=== PATIENT | male | born 1965 | race African-American/Black ===

== ENCOUNTER 2021-11-07 10:30 | Emergency (ER) | payer BC, OTHER ==
[~2021-11-07] VITALS: Ht 188 cm; Wt 74.8 kg
[2021-11-07 10:40] VITALS: BP 115/92
--- NOTE | 2021-11-07 10:50 | NUR ---
URINE SPECIMEN COLLECTED AND SENT TO LAB.
--- NOTE | 2021-11-07 11:00 | NUR ---
pt came in c/o blood in urine for 4 days along with abdominal pain. pt is a/o x4 and connected to the monitor.
[2021-11-07 11:17] LABS: BILIRUBIN,URINE MODERATE (NEGATIVE); COLOR,URINE BROWN (YELLOW); LEUKOCYTE ESTERASE ,URINE TRACE (NEGATIVE); NITRITE, URINE POSITIVE (NEGATIVE); PH,URINE 6.5 (5.0-8.0); PROTEIN,URINE >=300 mg/dl (NEGATIVE); UGLUCOSE NEGATIVE (NEGATIVE)
[2021-11-07 11:34] LABS: RBC,URINE TOO NUMEROUS TO COUN /HPF (0-2); WBC,URINE 0-2 /HPF (0-3)
[2021-11-07 11:35] LABS: BACTERIA,URINE Rare /HPF (None Seen); CALCIUM OXALATE CRYSTALS,UR Few /HPF (None Seen); SQUAMOUS EPITHELIAL CELL,UR None Seen /HPF (None Seen)
--- NOTE | 2021-11-07 13:12 | NUR ---
CALLED LAB TO FOLLOW UP BLOOD RESULT. STILL PENDING SINCE 11AM.
[2021-11-07] MEDS ORDERED: CEFTRIAXONE 1GM BAG (ER ONLY) 50 ML IV ONE (13:14)
[2021-11-07] MEDS ORDERED: CEPH500T PO (13:16)
[2021-11-07] MEDS ORDERED: IV NS 0.9% 1,000 ML IV ONE (13:30)
[2021-11-07] MEDS ORDERED: CEFTRIAXONE 1 G in IV D5W 50 ML IV ONE (13:30)
[2021-11-07 13:34] LABS: BASOPHILS % (AUTO) 1.1 % (0.0-2.0); HEMATOCRIT 42 % (39-51); HEMOGLOBIN 13.9 g/dL (13.5-17.5); LYMPHOCYTES # (AUTO) 0.8 K/uL (0.8-4.8); LYMPHOCYTES % (AUTO) 25.7 % (20.0-44.0); MEAN CORPUSCULAR HGB CONC 33 g/dl (31.0-36.0); MEAN CORPUSCULAR VOLUME 91 fL (80-96); MONOCYTES # (AUTO) 0.3 K/uL (0.1-1.30); NEUTROPHILS % (AUTO) 60.2 % (43.0-81.0); PLATELET COUNT (AUTO) 316 K/uL (150-450); RED BLOOD CELL COUNT(AUTO) 4.63 MIL/uL (4.5-6.0); WHITE BLOOD COUNT (AUTO) 3.3 K/uL (4.3-11.0)
[2021-11-07 13:53] LABS: CALCIUM, SERUM 9.4 mg/dL (8.5-10.1); CREATININE 1.1 mg/dL (0.6-1.3); POTASSIUM 4.6 mmol/L (3.5-5.1)
--- NOTE | 2021-11-07 14:10 | NUR ---
Patient discharged to home in stable condition. RX,Written and verbal after care instructions given. Patient verbalizes understanding of instruction.IV removed. Catheter intact and site benign. Pressure and 4x4 applied to site. No bleeding noted.
== END 2021-11-07 14:11 | disposition home or self-care (01) ==
LOC: ER 11:17
DX: N39.0 Urinary tract infection, site not specified (principal); R31.9 Hematuria, unspecified; E11.9 Type 2 diabetes mellitus without complications; Z60.2 Problems related to living alone
CPT/HCPCS: 36415; 74176; 80048; 81001; 85025; 85730; 87086; 96365; 99284; J0696; J7030